=== PATIENT | female | born 1970 | race African-American/Black ===

== ENCOUNTER 2018-02-28 08:31 | Emergency (ER) | payer OTHER ==
[~2018-02-28] VITALS: Ht 162.6 cm; Wt 74.8 kg
[2018-02-28 08:37] VITALS: BP 127/77
[2018-02-28] MEDS ORDERED: IBUPROFEN 600 MG TAB PO ONE (09:05)
[2018-02-28] MEDS ORDERED: traMADol 50 MG TAB PO ONE (09:05)
[2018-02-28] MEDS ORDERED: IBUPROFEN 400 MG TAB ONE (09:15)
[2018-02-28 11:55] VITALS: BP 115/74
== END 2018-02-28 11:55 | disposition home or self-care (01) ==
LOC: MED 08:31
DX: S13.9XXA Sprain of joints and ligaments of unspecified parts of neck, initial encounter (principal); S33.5XXA Sprain of ligaments of lumbar spine, initial encounter; Z85.038 Personal history of other malignant neoplasm of large intestine; V43.52XA Car driver injured in collision with other type car in traffic accident, initial encounter; Y93.89 Activity, other specified; Y92.488 Other paved roadways as the place of occurrence of the external cause; Y99.8 Other external cause status
CPT/HCPCS: 71046; 72050; 72100; 72125; 81002; 81025; 99285

== ENCOUNTER 2019-09-11 11:04 | Emergency (ER) | payer OTHER ==
[~2019-09-11] VITALS: Ht 162.6 cm; Wt 78.9 kg
--- NOTE | 2019-09-11 11:04 | NUR ---
pt. ambulated to ER 04 with steady gait.
[2019-09-11 11:06] VITALS: BP 123/81
--- NOTE | 2019-09-11 11:06 | NUR ---
DR CAMILO AT BEDSIDE EVALUATING PATIENT.
--- NOTE | 2019-09-11 11:10 | NUR ---
48 F C/O R FOOT/ANKLE PAIN S/P FALL APPROX. 10-15 MIN [employer]. PT STATES SHE WAS WALKING DOWN A STEP NEAR THE [employer] DEPT. AND FELL & TWISTED HER FOOT/ANKLE. NO SWELLING NOTED, CMS INTACT, NO OBVIOUS DEFORMITY, TENDER TO TOUCH. HX: NONE RX: NONE
--- NOTE | 2019-09-11 11:17 | NUR ---
XRAY AT BEDSIDE.
[2019-09-11] MEDS ORDERED: IBUPROFEN 800 MG TAB PO ONE (11:25)
--- NOTE | 2019-09-11 12:05 | NUR ---
pt educated on proper crutch training by [facility]
--- NOTE | 2019-09-11 12:08 | NUR ---
Patient discharged with v/s stable. Written and verbal after care instructions given and explained. Patient verbalized understanding. Ambulatory with crutch assist. All questions addressed prior to discharge. Advised to follow up with PMD.
--- NOTE | 2019-09-11 12:09 | NUR ---
applied air splint to right ankle without any issues. pt demonstrated proper use of crutches without any issues
== END 2019-09-11 12:10 | disposition home or self-care (01) ==
LOC: EEVIPCON 11:04 → MED 11:04
DX: S93.401A Sprain of unspecified ligament of right ankle, initial encounter (principal); Z85.038 Personal history of other malignant neoplasm of large intestine; W19.XXXA Unspecified fall, initial encounter; Y93.01 Activity, walking, marching and hiking; Y92.89 Other specified places as the place of occurrence of the external cause; Y99.8 Other external cause status
CPT/HCPCS: 73610; 99283; Q0092